=== PATIENT | male | born 1985 | race Caucasian/White ===

== ENCOUNTER 2017-10-14 21:59 | Emergency (ER) | payer SELFPAY ==
[~2017-10-14] VITALS: Ht 177.8 cm; Wt 87.0 kg
[2017-10-14 22:09] VITALS: BP 145/71; PULSE 105; RESP 16; TEMP 98.6; O2SAT 97
[2017-10-15] MEDS ORDERED: TRAZ100T10 PO (00:23)
[2017-10-15] MEDS ORDERED: DOXY100C PO (00:28)
--- NOTE | 2017-10-15 00:40 | PD ---
HPI Chief Complaint: Pain: Acute or Chronic Time Seen by Provider: 00:11 Travel History International Travel<30 days: No Contact w/Intl Traveler<30days: No Traveled to known affect area: No History of Present Illness HPI This patient complains of testicle pain. Duration one day. Severity is moderate. There is been no injury. Pain is in the end of the left testicle. No penile discharge or fever. PFSH Past Medical History Medical History: Denies Significant Hx Influenza Vaccination: No Social History Alcohol Use: No Tobacco Use: Yes Substance Use: No Allergies-Medications (Allergen,Severity, Reaction): Coded Allergies: No Known Allergies (Unverified , 10/14/17) Reported Meds & Prescriptions Reported Meds & Active Scripts Active Doxycycline Hyclate 100 Mg Cap 100 Mg PO BID Reported Trazodone (Trazodone HCl) 100 Mg Tablet 100 Mg PO HS Review of Systems General / Constitutional: No: Fever Eyes: No: Visual changes HENT: No: Headaches Cardiovascular: No: Chest Pain or Discomfort Respiratory: No: Shortness of Breath Gastrointestinal: No: Abdominal Pain Genitourinary: No: Dysuria Musculoskeletal: Positive: Pain Skin: No Rash Neurologic: No: Weakness Psychiatric: No: Depression Endocrine: No: Polydipsia Hematologic/Lymphatic: No: Easy Bruising Physical Exam Narrative GENERAL: Well-nourished, well-developed patient in no apparent distress. SKIN: Focused skin assessment reveals no rash and nodules. Skin is Warm and dry. HEAD: Atraumatic. Normocephalic. EYES: Pupils equal and round. No scleral icterus. No injection or drainage. ENT: No nasal bleeding or discharge. Mucous membranes pink and moist. NECK: Trachea midline. No JVD. CARDIOVASCULAR: Regular rate and rhythm. No murmur appreciated. RESPIRATORY: No accessory muscle use. Clear to auscultation. Breath sounds equal bilaterally. GASTROINTESTINAL: Abdomen soft, non-tender, nondistended. Hepatic and splenic margins not palpable. MUSCULOSKELETAL: No obvious deformities. No clubbing. No cyanosis. No edema. NEUROLOGICAL: Awake and alert. No obvious cranial nerve deficits. Motor grossly within normal limits. Normal speech. PSYCHIATRIC: Appropriate mood and affect; insight and judgment normal. : Circumcised penis without lesions. Right testicle nontender and freely mobile. Left testicle is freely mobile. It is tender only on the distal end where the epididymis is. The epididymis is tender. Scrotum is not red or swollen or warm. Data Data Last Documented VS Vital Signs Date Time Temp Pulse Resp B/P (MAP) Pulse Ox O2 Delivery O2 Flow Rate FiO2 10/14/17 22:09 98.6 105 16 145/71 (95) 97 Room Air MDM Medical Decision Making Medical Screen Exam Complete: Yes Emergency Medical Condition: Yes Medical Record Reviewed: Yes Differential Diagnosis Epididymitis, torsion, hydrocele Narrative Course I have reviewed the patient's electronic medical record. On a clinical basis is not consistent with torsion. Exam is consistent with epididymitis I prescribed him 10 days of doxycycline Supportive care discussed He declines pain medication Diagnosis Primary Impression: Epididymitis, left Additional Instructions: The patient was advised to follow up with their physician and return if they worsen. Med/Other Pt SpecificInfo: Prescription(s) given Scripts Doxycycline Hyclate (Doxycycline Hyclate) 100 Mg Cap 100 MG PO BID for Infection, #20 CAP 0 Refills Prov: Oscar Angulo MD 10/15/17 Disposition: DISCHARGE HOME Condition: Stable Oscar Angulo MD Oct 15, 2017 00:40
== END 2017-10-15 00:54 | disposition home or self-care (01) ==
LOC: NEPD 21:59
DX: N45.1 Epididymitis (principal); Z72.0 Tobacco use
CPT/HCPCS: 99283

== ENCOUNTER 2018-01-10 15:50 | Emergency (ER) | payer SELFPAY ==
[~2018-01-10] VITALS: Ht 180.3 cm; Wt 90.0 kg
[~2018-01-10 15:50] MED LIST: DOXY100C PO; TRAZ100T10 PO
[2018-01-10 15:55] VITALS: BP 143/72; PULSE 81; RESP 16; TEMP 97.9; O2SAT 99
[2018-01-10] MEDS ORDERED: ORPHENADRINE INJ 60 MG/2 ML AMP IM ONE (16:15)
[2018-01-10] MEDS ORDERED: KETOROLAC TROMETHAMINE 60 MG/2 ML (IM) VIAL IM ONE (16:15)
--- NOTE | 2018-01-10 17:12 | RADRPT ---
EXAM DATE: 01/10/2018 4:48 PM EDT AGE/SEX: 32 years / Male INDICATIONS: Posterior chest and back pain. CLINICAL DATA: This is the patient's initial encounter. Patient reports that signs and symptoms have been present for 1 day and indicates a pain score of 3/10. MEDICAL/SURGICAL HISTORY: None. None. COMPARISON: No prior exams available for comparison. FINDINGS: PA and lateral views of the chest demonstrate the lungs to be symmetrically aerated without evidence of mass, infiltrate or effusion. The cardiomediastinal contours are unremarkable. Osseous structures are intact. CONCLUSION: No acute cardiopulmonary process. Electronically signed by: Mateo Upton MD 01/10/2018 5:11 PM EDT
[2018-01-10] MEDS ORDERED: ROBA500T PO (17:13)
--- NOTE | 2018-01-10 17:14 | PD ---
HPI Chief Complaint: Back/ Neck Pain or Injury Time Seen by Provider: 15:57 Travel History International Travel<30 days: No Contact w/Intl Traveler<30days: No Traveled to known affect area: No History of Present Illness HPI Male presents to emergency department with complaint of left upper/mid back pain for the past 2-3 months. Denies injury, heavy lifting, straining. Says it hurts when he takes a deep breath. Denies chest pain, shortness of breath. Denies encopresis, incontinence, saddle anesthesias. Denies paresthesias, loss of sensation, decreased range of motion, decreased strength to all extremities. Denies change in gait. Denies fever. Says he vomited last night and says he thinks it is related to taking too much ibuprofen and Tylenol. Denies IV drug use, cancer. Denies recent illness to include cough, nasal congestion. Has been taking ibuprofen, Tylenol, aspirin with some relief of symptoms. Symptoms are mild to moderate in severity. Worse with movement. No known relieving factors. No primary care provider. No known allergies. Denies significant past medical history. Has no other medical complaints. No other modifying factors or associated signs and symptoms. [facility] Social History Alcohol Use: No Tobacco Use: Yes Substance Use: No Allergies-Medications (Allergen,Severity, Reaction): Coded Allergies: No Known Allergies (Unverified , 01/10/18) Reported Meds & Prescriptions Reported Meds & Active Scripts Active Robaxin (Methocarbamol) 500 Mg Tab 500 Mg PO QID PRN Review of Systems Except as stated in HPI: all other systems reviewed are Neg Physical Exam Narrative GENERAL: Well-nourished, well-developed patient, in no acute distress ; afebrile, nontoxic-appearing SKIN: Warm and dry. HEAD: Atraumatic. Normocephalic. EYES: Pupils equal and round. No scleral icterus. No injection or drainage. ENT: Mucosa pink and moist. Airway patent. NECK: Trachea midline. CARDIOVASCULAR: Regular rate and rhythm. No murmur appreciated. RESPIRATORY: No accessory muscle use. Breath sounds clear and equal bilaterally. No retractions or tachypnea. GASTROINTESTINAL: Flat. MUSCULOSKELETAL: Bilateral lower extremities supple and non-tense with 2+ pedal pulses and sensory intact; with full range of motion and 5/5 strength. Active dorsiflexion and extension of bilateral feet. Ambulatory in room with normal gait. Sitting up in bed at 90. No obvious deformities. No clubbing. No cyanosis. No edema. BACK: Left upper/mid back with tenderness on palpation just below the scapula and to the left lateral rib cage area; no skin changes noted; no crepitance or deformities. No midline point tenderness on palpation of the thoracic spine. No obvious deformities. NEUROLOGICAL: Awake and alert. Oriented 3. No obvious cranial nerve deficits. Motor grossly within normal limits. Normal speech. Moves all extremities. 5/5 strength to all extremities. Sensory intact. PSYCHIATRIC: Appropriate mood and affect; insight and judgment normal. Data Data Last Documented VS Vital Signs Date Time Temp Pulse Resp B/P (MAP) Pulse Ox O2 Delivery O2 Flow Rate FiO2 01/10/18 15:55 97.9 81 16 143/72 (95) 99 Orders Orders Ketorolac Inj (Toradol Inj) (01/10/18 16:15) Orphenadrine Inj (Norflex Inj) (01/10/18 16:15) Chest, Pa & Lat (01/10/18 16:04) MDM Medical Decision Making Medical Screen Exam Complete: Yes Emergency Medical Condition: Yes Medical Record Reviewed: Yes Differential Diagnosis Muscle strain, muscle spasm, back pain Narrative Course 32-year-old male with left-sided thoracic back pain to the area of the trapezius muscle. No midline tenderness on palpation of the thoracic spine. No IV drug use or cancer. Denies encopresis, incontinence, saddle anesthesias. Patient ambulatory with a normal gait. No traumatic injury. Patient reports pain when he breathes. I will do chest x-ray to rule out any acute findings. 1715: Chest x-ray concluded: Last 24 hours Impressions Chest X-Ray 01/10/18 1604 Signed Impressions: CONCLUSION: No acute cardiopulmonary process. Patient provided a copy of his x-ray report. Robaxin and Medrol Dosepak prescribed for home. Instructed patient to follow up with primary care provider. Patient verbalizes understanding and agreement with treatment plan. Patient is medically cleared and stable for discharge. Discussed reasons to return to the emergency department. Patient agrees with treatment plan. The patients vital signs are stable and the patient is stable for outpatient follow- up and treatment. Patient discharged home, stable and in no acute distress. Diagnosis Primary Impression: Back pain Qualified Codes: M54.6 - Pain in thoracic spine Referrals: [facility] Primary Care Physician Patient Instructions: Back Pain (ED), General Instructions, Muscle Spasm (ED), Muscle Strain (ED) Additional Instructions: Tylenol or ibuprofen as directed and as needed for pain Robaxin as prescribed and as needed for muscle spasms Heating pad and/or ice to affected area to reduce pain Avoid aggravating activities; increase activity as tolerated Follow-up with primary care provider Return to emergency department immediately with worsening of symptoms Med/Other Pt SpecificInfo: Prescription(s) given Scripts Methylprednisolone Dosepak (Medrol Dosepak) 4 Mg Dspk 4 MG PO DIRECTED, #1 DSPK 0 Refills Per Pharmacist direction Prov: Milagros Saeed 01/10/18 Methocarbamol (Robaxin) 500 Mg Tab 500 MG PO QID Y for MUSCLE SPASM, #30 TAB 0 Refills Prov: Milagros Saeed 01/10/18 Disposition: 01 DISCHARGE HOME Condition: Stable Milagros Saeed Jan 10, 2018 17:14
[2018-01-10] MEDS ORDERED: MEDR4PAK PO (17:15)
== END 2018-01-10 17:35 | disposition home or self-care (01) ==
LOC: NEPK 15:50
DX: M54.6 Pain in thoracic spine (principal); Z72.0 Tobacco use
CPT/HCPCS: 71046; 96372; 99283; J1885; J2360

== ENCOUNTER 2018-01-12 00:16 | Emergency (ER) | payer SELFPAY ==
[~2018-01-12] VITALS: Ht 180.3 cm; Wt 85.0 kg
[~2018-01-12 00:16] MED LIST changes: -DOXY100C PO; +MEDR4PAK PO; +ROBA500T PO; -TRAZ100T10 PO
[2018-01-12 00:37] VITALS: BP 131/84; PULSE 75; RESP 16; TEMP 97.8; O2SAT 98
--- NOTE | 2018-01-12 00:52 | PD ---
HPI Chief Complaint: Chest Pain Time Seen by Provider: 00:51 Travel History International Travel<30 days: No Contact w/Intl Traveler<30days: No Traveled to known affect area: No History of Present Illness HPI Patient comes in complaining of chest wall pain, over to the left side of the chest, described as sharp, worse with movement or lifting. Intensity is 7 out of 10, patient denies any shortness of breath, denies any back pain denies any abdominal pain. Patient states alleviating to use of Tylenol and Motrin. As previously stated aggravated by movement. Patient denies any associated factors such as fever, rash, headache, neck pain, visual changes, cough, shortness of breath, abdominal pain, nausea, vomiting, diarrhea. No known drug allergy Past medical history significant for orthopedic right tib-fib fracture surgery, otherwise denies history PFSH Social History Alcohol Use: No Tobacco Use: Yes Substance Use: No Allergies-Medications (Allergen,Severity, Reaction): Coded Allergies: No Known Allergies (Unverified , 01/12/18) Reported Meds & Prescriptions Reported Meds & Active Scripts Active Medrol Dosepak (Methylprednisolone) 4 Mg Dspk 4 Mg PO DIRECTED Per Pharmacist direction Robaxin (Methocarbamol) 500 Mg Tab 500 Mg PO QID PRN Review of Systems General / Constitutional: No: Fever Eyes: No: Visual changes HENT: No: Headaches Cardiovascular: Positive: Chest Pain or Discomfort Respiratory: No: Shortness of Breath Gastrointestinal: No: Abdominal Pain Genitourinary: No: Dysuria Musculoskeletal: No: Pain Skin: No Rash Neurologic: No: Weakness Psychiatric: No: Depression Endocrine: No: Polydipsia Hematologic/Lymphatic: No: Easy Bruising Physical Exam Narrative GENERAL: SKIN: Warm and dry. HEAD: Atraumatic. Normocephalic. EYES: Pupils equal and round. No scleral icterus. No injection or drainage. ENT: No nasal bleeding or discharge. Mucous membranes pink and moist. NECK: Trachea midline. No JVD. CARDIOVASCULAR: Regular rate and rhythm. RESPIRATORY: No accessory muscle use. Clear to auscultation. Breath sounds equal bilaterally. GASTROINTESTINAL: Abdomen soft, non-tender, nondistended. MUSCULOSKELETAL: Extremities without clubbing, cyanosis, or edema. No obvious deformities. NEUROLOGICAL: Awake and alert. No obvious cranial nerve deficits. Motor grossly within normal limits. Five out of 5 muscle strength in the arms and legs. Normal speech. PSYCHIATRIC: Appropriate mood and affect; insight and judgment normal. Data Data Last Documented VS Vital Signs Date Time Temp Pulse Resp B/P (MAP) Pulse Ox O2 Delivery O2 Flow Rate FiO2 01/12/18 00:59 76 01/12/18 00:59 98.4 14 132/90 (104) 99 Room Air Orders Orders Electrocardiogram (01/12/18 00:52) B-Type Natriuretic Peptide (01/12/18 00:52) Ckmb (Isoenzyme) Profile (01/12/18 00:52) Complete Blood Count With Diff (01/12/18 00:52) Comprehensive Metabolic Panel (01/12/18 00:52) D-Dimer (01/12/18 00:52) Prothrombin Time / Inr (Pt) (01/12/18 00:52) Act Partial Throm Time (Ptt) (01/12/18 00:52) Troponin I (01/12/18 00:52) Lipase (01/12/18 00:52) Chest, Single Ap (01/12/18 00:52) Ecg Monitoring (01/12/18 00:52) Iv Access Insert/Monitor (01/12/18 00:52) Oximetry (01/12/18 00:52) Sodium Chloride 0.9% Flush (Ns Flush) (01/12/18 01:00) Labs Laboratory Tests Test 01/12/18 01:10 White Blood Count 10.2 TH/MM3 Red Blood Count 4.34 MIL/MM3 Hemoglobin 12.7 GM/DL Hematocrit 37.6 % Mean Corpuscular Volume 86.6 FL Mean Corpuscular Hemoglobin 29.4 PG Mean Corpuscular Hemoglobin Concent 33.9 % Red Cell Distribution Width 13.6 % Platelet Count 285 TH/MM3 Mean Platelet Volume 7.2 FL Neutrophils (%) (Auto) 61.8 % Lymphocytes (%) (Auto) 26.7 % Monocytes (%) (Auto) 7.0 % Eosinophils (%) (Auto) 4.2 % Basophils (%) (Auto) 0.3 % Neutrophils # (Auto) 6.3 TH/MM3 Lymphocytes # (Auto) 2.7 TH/MM3 Monocytes # (Auto) 0.7 TH/MM3 Eosinophils # (Auto) 0.4 TH/MM3 Basophils # (Auto) 0.0 TH/MM3 CBC Comment DIFF FINAL Differential Comment Prothrombin Time 10.6 SEC Prothromb Time International Ratio 1.0 RATIO Activated Partial Thromboplast Time 31.7 SEC D-Dimer Quantitative (PE/DVT) 0.32 MG/L FEU Blood Urea Nitrogen 17 MG/DL Creatinine 0.87 MG/DL Random Glucose 89 MG/DL Total Protein 7.2 GM/DL Albumin 3.4 GM/DL Calcium Level 8.4 MG/DL Alkaline Phosphatase 81 U/L Aspartate Amino Transf (AST/SGOT) 9 U/L Alanine Aminotransferase (ALT/SGPT) 8 U/L Total Bilirubin 0.4 MG/DL Sodium Level 146 MEQ/L Potassium Level 3.6 MEQ/L Chloride Level 112 MEQ/L Carbon Dioxide Level 23.1 MEQ/L Anion Gap 11 MEQ/L Estimat Glomerular Filtration Rate 102 ML/MIN Total Creatine Kinase 59 U/L Troponin I LESS THAN 0.02 NG/ML B-Type Natriuretic Peptide 60 PG/ML Lipase 274 U/L MDM Medical Decision Making Medical Screen Exam Complete: Yes Emergency Medical Condition: Yes Medical Record Reviewed: Yes Differential Diagnosis Rib fracture versus pneumothorax versus chest wall pain versus STEMI versus Narrative Course CBC shows no evidence of any leukocytosis, no anemia, normal platelet count, no left shift Coagulation profile is within normal limits with a negative d-dimer Electrolytes are all within normal limits, normal kidney liver and pancreatic functions First set of cardiac enzymes negative, which as per patient description of a constant sharp chest pain since 2 days ago the single troponin would rule out non-STEMI. Diagnosis Primary Impression: Chest wall pain Patient Instructions: Chest Wall Pain (ED), General Instructions Scripts Tramadol (Ultram) 50 Mg Tab 50 MG PO Q6H Y for PAIN, #12 TAB 0 Refills Prov: Neri Fang MD 01/12/18 Disposition: 01 DISCHARGE HOME Condition: Stable Neri Fang MD Jan 12, 2018 00:52
[2018-01-12 00:59] VITALS: BP 132/90; PULSE 76; RESP 14; TEMP 98.4; O2SAT 99
[2018-01-12] MEDS ORDERED: SODIUM CHLORIDE 0.9% FLUSH 10 ML FLUSH IVF PRN (01:00)
[2018-01-12 01:22] LABS: AUTOMATED NEUTROPHIL # 6.3 TH/MM3 (1.8-7.7); BASOPHIL % 0.3 % (0.0-2.0); EOSINOPHIL # 0.4 TH/MM3 (0-0.4); EOSINOPHIL % 4.2 % (0.0-4.0); HEMATOCRIT 37.6 % (39.0-51.0); HEMOGLOBIN 12.7 GM/DL (13.0-17.0); LYMPH % 26.7 % (9.0-44.0); LYMPHOCYTE # 2.7 TH/MM3 (1.0-4.8); MEAN CELL VOLUME 86.6 FL (80.0-100.0); MEAN CORPUSCULAR HEMOGLOBIN 29.4 PG (27.0-34.0); MEAN CORPUSCULAR HGB CONC 33.9 % (32.0-36.0); MEAN PLATELET VOLUME 7.2 FL (7.0-11.0); MONOCYTE # 0.7 TH/MM3 (0-0.9); NEUT % 61.8 % (16.0-70.0); PLATELET COUNT 285 TH/MM3 (150-450); RED BLOOD COUNT 4.34 MIL/MM3 (4.50-5.90); RED CELL DISTRIBUTION WIDTH 13.6 % (11.6-17.2); WHITE BLOOD COUNT 10.2 TH/MM3 (4.0-11.0)
[2018-01-12 01:37] LABS: ALBUMIN 3.4 GM/DL (3.4-5.0); ALT (GPT) 8 U/L (12-78); AST (GOT) 9 U/L (15-37); BICARBONATE 23.1 MEQ/L (21.0-32.0); BLOOD UREA NITROGEN 17 MG/DL (7-18); CALCIUM 8.4 MG/DL (8.5-10.1); CHLORIDE 112 MEQ/L (98-107); CREATININE 0.87 MG/DL (0.60-1.30); GLOMERULAR FILTRATION RATE 102 ML/MIN (>89); GLUCOSE,RANDOM 89 MG/DL (74-106); SODIUM (NA) 146 MEQ/L (136-145)
[2018-01-12 01:41] LABS: ALKALINE PHOSPHATASE 81 U/L (45-117); TOTAL BILIRUBIN ADULT 0.4 MG/DL (0.2-1.0); TOTAL PROTEIN 7.2 GM/DL (6.4-8.2); TROPONIN I LESS THAN 0.02 NG/ML (0.02-0.05)
--- NOTE | 2018-01-12 01:43 | RADRPT ---
EXAM DATE: 01/12/2018 1:40 AM EDT AGE/SEX: 32 years / Male INDICATIONS: Chest pain. CLINICAL DATA: This is the patient's initial encounter. Patient reports that signs and symptoms have been present for 1 day and indicates a pain score of 5/10. MEDICAL/SURGICAL HISTORY: None. None. COMPARISON: No prior exams available for comparison. FINDINGS: A single AP view of the chest demonstrates the lungs to be symmetrically aerated without evidence of mass, infiltrate or effusion. The cardiomediastinal contours are unremarkable. Osseous structures a re intact. CONCLUSION: No acute cardiopulmonary disease. Electronically signed by: John Mcleod MD 01/12/2018 1:42 AM EDT
[2018-01-12 01:46] LABS: PROTHROMBIN TIME - PATIENT 10.6 SEC (9.8-11.6)
[2018-01-12 01:47] LABS: D-DIMER 0.32 MG/L FEU (0.00-0.50)
[2018-01-12] MEDS ORDERED: TRAM50 PO (02:18)
--- NOTE | 2018-01-12 09:14 | EKG ---
Date Performed: 01/12/2018 Time Performed: 00:55:49 PTAGE: 32 years EKG: Sinus rhythm LEFT POSTERIOR FASCICULAR BLOCK ABNORMAL ECG INTERPRETATION BASED ON A DEFAULT AGE OF 40 YEARS NO PREVIOUS TRACING DOCTOR: Elder Tian Interpretating Date/Time 01/12/2018 09:13:08
== END 2018-01-12 02:34 | disposition home or self-care (01) ==
LOC: NEPC 00:16
DX: R07.89 Other chest pain (principal); R94.31 Abnormal electrocardiogram [ECG] [EKG]; Z72.0 Tobacco use
CPT/HCPCS: 71045; 80053; 82550; 83690; 83880; 84484; 85025; 85379; 85610; 85730; 93005; 99285